=== PATIENT | male | born 1965 | race Caucasian/White ===

== ENCOUNTER 2020-09-20 08:08 | Day surgery (SDC) | payer OTHER, SELFPAY ==
--- NOTE | 2020-09-20 06:35 | W.COLOREPORT ---
Date of service: 09/20/20 Time of Service: 09:18 Colonoscopy Report Date of procedure: 09/20/20 Pre-op diagnosis general: Hx of polyps, screening Post-op diagnosis procedure note: same Procedure: Colonoscopy with polypectomy Surgeon: Kierra Castro Anesthesia proc note operative: other (General/ASA 2/Eileen Cameron CRNA) Estimated blood loss (mL): 3 Pathology: other (AScending, sigmoid and rectal polyps) Complications: None Disposition: same day Indications: The patient is here for Colonoscopy pre-op. His last screening was in 2017, which was remarkable for rectal tubulovillous adenoma polyps. He reports a family history of colon cancer in his grandmother. He has not had any bowel habit changes. -Discussed colonoscopy bowel prep as well as the procedure. Discussed possible complications of the procedure to include bleeding, pain, perforation, missed small lesion/polyp, sore throat, aspiration and adverse reaction to the medications. Questions were answered to patient?s satisfaction. No guarantees were implied or given. Prep: Miralax/Dulcolax Procedure Start Time: :18 Procedure End Time: 09:48 Retraction Time: 23 minutes Findings: 3 small polyps < 5mm 1 polyp >5 mm Procedure Description: After informed consent was obtained the patient was taken to the procedure room and placed in a left decubitous position. Monitors were applied and a time out was done. The patients name, date of , procedure, allergies to medications and metal in their body was reviewed. The patient was then sedated. Once sedated and comfortable a rectal exam was done. External exam was normal. Internal exam revealed a normal sphincter tone and no palpable masses. The prostate felt smooth and only slightly enlarged. The scope was then introduced and retro-flexed. No internal hemorrhoids, polyps or masses were identified on retro-flexion. The scope was then advanced to the cecum without difficulty. The ileocecal vlave and appendiceal orifice were identified. The prep was adequate. The scope was then slowly retracted over 23 minutes back into the rectum. Polyps were removed with cold forceps in the ascending colon and rectum x2, and with a hot snare in the sigmoid colon. There was no diverticulosis noted. The scope was removed and the patient was woken up and taken back to Same day surgery in stable condition. The patient tolerated the procedure well and there were no immediate complications. Follow up: The patient should follow up in 3-5 years unless they develop changes in bowel habits or other new gastrointestinal complaints.
--- NOTE | 2020-09-20 06:36 | W.PM.DSUDISC ---
Discharge Plan Disposition Patient Disposition: HOME Condition: Good Discharge Details Reason For Visit: Colonoscopy Attending Provider: Kierra Castro Primary Care Provider: Shital De La Garza Home Meds and New Rx's Prescriptions: Discontinued polyethylene glycol 3350 17 gram/dose powder 238 g PO ONCE Qty: 238 RF: 0 bisacodyl [Dulcolax (bisacodyl)] 5 mg tablet,delayed release (DR/EC) 5 mg PO ONCE Qty: 4 RF: 0 polyethylene glycol 3350 [Miralax] 17 GM powder in packet 255 gm PO for colonoscopy Qty: 1 RF: 0 bisacodyl [Dulcolax (bisacodyl)] 5 MG tablet,delayed release (DR/EC) 5 mg PO ONCE Qty: 4 RF: 0 Discharge Instructions Instructions: Colorectal Polyps (DC) Additional Instructions: Findings: 4 polyps Follow up: 3-5 years Please call if you develop: fevers >101.5 Nausea or Vomiting Abdominal pain that is not transient DAY SURGERY UNIT POST ENDOSCOPY INSTRUCTIONS 1. Because there will be medication in your system for the next 24 hours, you may feel a little sleepy. Your coordination will be affected. Therefore: a. Do not drive or operate dangerous equipment for 24 hours. b. Do not drink alcohol beverages for 24 hours (not even beer). c. Plan to go home and rest for the day. 2. Generally there are no restrictions on your activity after a day or so has gone by, but you may feel a bit fatigued for a few days. 3 After you arrive home you may have a light meal and return to a normal diet as you can tolerate it without feeling sick to your stomach. 4. After surgery, you may feel pain or discomfort. This should be only transient, but if it persists please contact your doctor. 5. If there are any questions regarding the findings of your procedure, please feel free to contact your doctor. 6. If you are unable to contact your doctor with a problem, contact the hospital at [phone]. 7. Continue all your regular medications unless directed otherwise. I understand the above instructions and have no questions. Signature of Patient or Responsible Adult Escort Date/Time Name of Responsible Adult Escort Signature of Nurse Date/Time Activity:: Activity as Tolerated Diet:: As Tolerated Discharge Orders Discharge Orders: Discharge Order (Routine); Ordered 09/20/20 Ordered By: Kierra Castro
[2020-09-20 08:28] VITALS: BP 132/85; PULSE 79; RESP 16; TEMP 36.4; O2SAT 99
[2020-09-20] MEDS: Lactated Ringers 1,000 ML 80 ML IV (08:40)
--- NOTE | 2020-09-20 09:29 | BOWEL_PTH ---
PATIENT: Davian Gotti LOC: [facility] U#:[id number] AGE/SX: 55/M ROOM: RE09/20/[address]: Kierra Castro MD : [id number] BED: DIS: 09/20/2020 SPEC #: [id number] RECD: 09/20/20 12:35 STATUS: KIANA REQ #: [id number] AYAD: 09/20/20 09:[address]: Kierra Castro DEPT: Surgical Specimen RECD BY: Jelly Sanchez ENTERED: 09/20/20 12:36 SP TYPE: Bowel OTHR DR: Shital De La Garza Tissues: 1 - BIOPSY BOWEL 2 - BIOPSY BOWEL 3 - BIOPSY BOWEL Procedures: GROSS AND MICRO LEVEL 4 Comments: [id number]
[2020-09-20 10:14] VITALS: BP 147/83; PULSE 72; RESP 17; TEMP 36.3; O2SAT 97
[2020-09-20 10:36] VITALS: BP 123/89; PULSE 66; RESP 16; O2SAT 99
== END 2020-09-20 11:28 | disposition home or self-care (01) ==
LOC: SUR 08:08
PROVIDERS: PCP Family Medicine; Visit Provider Surgery
PROC: 0DJD8ZZ Inspection of Lower Intestinal Tract, Via Natural or Artificial Opening Endoscopic (ICD-10-PCS; CPT 45378; principal; 2020-09-20 09:00)
DX: Z12.11 Encounter for screening for malignant neoplasm of colon (principal); D12.2 Benign neoplasm of ascending colon; D12.5 Benign neoplasm of sigmoid colon; K62.1 Rectal polyp; Z80.0 Family history of malignant neoplasm of digestive organs
CPT/HCPCS: 45385; 45380; 88305; J2001

== ENCOUNTER 2021-11-09 19:11 | Outpatient (REF) | payer OTHER, SELFPAY ==
[2021-11-09 19:31] LABS: HCT 42.9 % (40.0-50.0); HGB 14.2 g/dL (13.5-17.5); MCH 30.3 pg (27.0-33.0); MCHC 33.1 % (32.0-36.0); MCV 91.5 fL (80-95); MPV 11.2 fL (8.0-11.0); Platelet Count 242 10^3/uL (130-400); RBC 4.69 10^6/uL (4.36-5.78); RDW 11.8 % (11.8-14.1); RDW-SD 39.5 fL
[2021-11-09 19:50] LABS: ALT 38 U/L (16-63); AST 27 U/L (15-37); Albumin 4.5 g/dL (3.4-5.0); Alkaline Phosphatase 93 U/L (46-116); BUN 8 mg/dL (7-18); Bilirubin, Total 0.9 mg/dL (0.2-1.0); CREATININE 0.8 mg/dL (0.70-1.30); Calcium 9.4 mg/dL (8.5-10.1); Calculated LDL 152 mg/dL (<100); Chloride 100 mmol/L (98-107); Cholesterol 258 mg/dL (<200); Glucose 89 mg/dL (74-106); HDL Cholesterol 89 mg/dL (40-60); Potassium 3.9 mmol/L (3.5-5.1); Sodium 138 mmol/L (136-145); TSH (W/Ref FT4) 1.68 uIU/mL (0.36-3.74); Total Protein 8.1 g/dL (6.4-8.2); Triglyceride 85 mg/dL (<150)
[2021-11-09 20:27] LABS: Hemoglobin A1C 5.9 % (<5.7)
== END 2021-11-09 19:12 | disposition home or self-care (01) ==
LOC: NCHCN 19:11
PROVIDERS: PCP Family Medicine; Visit Provider Family Medicine
DX: Z00.00 Encounter for general adult medical examination without abnormal findings (principal); K59.00 Constipation, unspecified; R03.0 Elevated blood-pressure reading, without diagnosis of hypertension; Z13.1 Encounter for screening for diabetes mellitus; Z13.220 Encounter for screening for lipoid disorders
CPT/HCPCS: 80053; 80061; 85027; 83036; 84443

== ENCOUNTER 2022-12-07 10:57 | Outpatient (REF) | payer OTHER, SELFPAY ==
[2022-12-07 16:04] LABS: Hemoglobin A1C 5.3 % (<5.7)
== END 2022-12-07 10:58 | disposition home or self-care (01) ==
LOC: NCHCN 10:57
PROVIDERS: PCP Family Medicine; Visit Provider Family Medicine
DX: R73.03 Prediabetes (principal)
CPT/HCPCS: 83036

== ENCOUNTER 2023-12-26 13:05 | Outpatient (REF) | payer OTHER, SELFPAY ==
[2023-12-26 14:53] LABS: HCT 41.6 % (40.0-50.0); HGB 14.1 g/dL (13.5-17.5); MCH 31.9 pg (27.0-33.0); MCHC 33.9 % (32.0-36.0); MCV 94 fL (80-95); Platelet Count 294 10^3/uL (130-400); RBC 4.42 10^6/uL (4.36-5.78)
[2023-12-26 15:14] LABS: BUN 10 mg/dL (7-18); CREATININE 0.9 mg/dL (0.70-1.30); Calcium 10.4 mg/dL (8.5-10.1); Chloride 98 mmol/L (98-107); Estimated GFR 98.38 (mL/min/1.73m2); Glucose 97 mg/dL (74-106); Sodium 133 mmol/L (136-145)
[2023-12-26 15:32] LABS: Hemoglobin A1C 5.5 % (<5.7)
== END 2023-12-26 13:06 | disposition home or self-care (01) ==
LOC: NCHCN 13:05
PROVIDERS: PCP Family Medicine; Visit Provider Family Medicine
DX: I10 Essential (primary) hypertension (principal); R73.03 Prediabetes
CPT/HCPCS: 80048; 85027; 83036

== ENCOUNTER 2024-02-11 13:32 | Outpatient (REF) | payer OTHER, SELFPAY ==
[2024-02-11 16:45] LABS: ALT 40 U/L (16-63); AST 28 U/L (15-37); Albumin 4.4 g/dL (3.4-5.0); Alkaline Phosphatase 130 U/L (46-116); Anion Gap 8.9 mmol/L (3-11); BUN 11 mg/dL (7-18); Bilirubin, Total 0.92 mg/dL (0.2-1.0); CO2 28.1 mmol/L (21.0-32.0); CREATININE 0.9 mg/dL (0.70-1.30); Calcium 9.9 mg/dL (8.5-10.1); Chloride 104 mmol/L (98-107); Estimated GFR 97.78 (mL/min/1.73m2); Glucose 98 mg/dL (74-106); Magnesium 2.2 mg/dL (1.8-2.4); Potassium 4.6 mmol/L (3.5-5.1); Sodium 141 mmol/L (136-145); Vitamin D 25 Total 48.7 ng/mL (30-100)
[2024-02-11 23:21] LABS: Parathyroid Hormone,Intact 59 pg/mL (19-88)
== END 2024-02-11 13:33 | disposition home or self-care (01) ==
LOC: NCHCN 13:32
PROVIDERS: PCP Family Medicine; Visit Provider Family Medicine
DX: E83.52 Hypercalcemia (principal)
CPT/HCPCS: 80053; 82306; 83735; 83970

== ENCOUNTER 2024-12-31 09:34 | Outpatient (REF) | payer OTHER, SELFPAY ==
[2024-12-31 15:55] LABS: HCT 41.9 % (40.0-50.0); HGB 13.7 g/dL (13.5-17.5); MCHC 32.7 % (32.0-36.0); MCV 95 fL (80-95); MPV 11.3 fL (8.0-11.0); Platelet Count 293 10^3/uL (130-400); RBC 4.42 10^6/uL (4.36-5.78); RDW 11.8 % (11.8-14.1); RDW-SD 41.1 fL; WBC 5.99 10^3/uL (4.4-10.8)
[2024-12-31 16:35] LABS: Hemoglobin A1C 5.7 % (<5.7)
[2024-12-31 16:37] LABS: ALT 50 U/L (16-63); AST 37 U/L (15-37); Albumin 4.5 g/dL (3.4-5.0); Alkaline Phosphatase 98 U/L (46-116); Anion Gap 8.1 mmol/L (3-11); BUN 8 mg/dL (7-18); Bilirubin, Total 0.8 mg/dL (0.2-1.0); CO2 29.9 mmol/L (21.0-32.0); CREATININE 0.9 mg/dL (0.70-1.30); Calcium 9.2 mg/dL (8.5-10.1); Chloride 100 mmol/L (98-107); Estimated GFR 97.78 (mL/min/1.73m2); Glucose 100 mg/dL (74-106); Potassium 4.1 mmol/L (3.5-5.1); Sodium 138 mmol/L (136-145); Total Protein 8.1 g/dL (6.4-8.2)
== END 2024-12-31 09:35 | disposition home or self-care (01) ==
LOC: NCHCN 09:34
PROVIDERS: PCP Family Medicine; Visit Provider Family Medicine
DX: R73.03 Prediabetes (principal); I10 Essential (primary) hypertension
CPT/HCPCS: 80053; 85027; 83036

== ENCOUNTER 2025-06-24 13:23 | Outpatient (REF) | payer OTHER, SELFPAY | END 2025-06-24 13:24 | disposition home or self-care (01) | LOC: NCHCN 13:23 | PROVIDERS: PCP Family Medicine; Visit Provider Family Medicine | DX: I10 Essential (primary) hypertension (principal) | CPT/HCPCS: 82043; 82570 ==